=== PATIENT | female | born 1935 | race Caucasian/White ===

== ENCOUNTER 2017-11-15 07:32 | Inpatient (IN) | payer MEDICARE, OTHER ==
[~2017-11-15] VITALS: Ht 149.9 cm; Wt 49.8 kg
[2017-11-15] MEDS ORDERED: ATROPINE SYRINGE 0.1 MG/ML, 10ML ONE (07:36)
[2017-11-15 07:59] LABS: BASOPHILS # (AUTO) 0.02 x10^3/uL (0-0.1); BASOPHILS % (AUTO) 0 % (0-1); EOSINOPHILS # (AUTO) 0.17 x10^3/uL (0-0.4); EOSINOPHILS % (AUTO) 3 % (1-7); LYMPHOCYTES # (AUTO) 1.58 x10^3/uL (1-3.4); LYMPHOCYTES % (AUTO) 24 % (22-44); MD NO; MEAN CORPUSCULAR HEMOGLOBIN 33.3 pg (27.0-34.8); MEAN CORPUSCULAR VOLUME 98.1 fL (80-100); MEAN PLATELET VOLUME 8.9 fL (7.4-10.4); MONOCYTES # (AUTO) 0.37 x10^3/uL (0.2-0.8); MONOCYTES % (AUTO) 6 % (2-9); NEUTROPHILS % (AUTO) 68 % (42-75); PLATELET COUNT 279 x10^3/uL (130-400); RED BLOOD COUNT 3.62 x10^6/uL (3.82-5.3); RED CELL DISTRIBUTION WIDTH 12.4 % (9.6-15.2)
[2017-11-15] MEDS ORDERED: SODIUM CHLORIDE FLUSH 10ML SYR IVF ONE (08:00)
[2017-11-15] MEDS ORDERED: ATROPINE SYRINGE 0.1 MG/ML, 10ML IVPush ONE (08:00)
[2017-11-15] MEDS ORDERED: SODIUM CHLORIDE 0.9% 1,000ML IVBOLUS ONE (08:00)
[2017-11-15 08:08] LABS: INTERNATIONAL NORMALIZED RATIO 0.96 (0.93-1.1)
[2017-11-15 08:10] LABS: ALANINE AMINOTRANSFERASE 41 U/L (12-78); ALBUMIN 3.3 g/dL (3.4-5.0); ANION GAP 10 mmol/L (5-15); CALCIUM 7.7 mg/dL (8.5-10.1); CHLORIDE 103 mmol/L (98-107); CREATININE 0.83 mg/dL (0.55-1.02)
[2017-11-15 08:14] LABS: ALKALINE PHOSPHATASE 96 U/L (45-117); BILIRUBIN,TOTAL 0.4 mg/dL (0.2-1.0); TOTAL PROTEIN 6.4 g/dL (6.4-8.2); TROPONIN I < 0.015 ng/mL (0.000-0.045)
[2017-11-15] MEDS ORDERED: PLEASE ENTER ALLERGIES MC SCH (08:30)
[2017-11-15] MEDS: SODIUM CHLORIDE 0.9% 1,000 ML IV SCH ×3 (08:32→16:01)
[2017-11-15] MEDS ORDERED: CEFAZOLIN PMX 1GM/50ML 50 ML IVPB ONE (09:00)
[2017-11-15] MEDS ORDERED: LOSA100T7 PO (09:37)
[2017-11-15] MEDS ORDERED: METO25TA91 PO (09:37)
[2017-11-15] MEDS ORDERED: PRAV10TA2 PO (09:37)
[2017-11-15] MEDS ORDERED: PANT40TA5 PO (09:37)
[2017-11-15] MEDS ORDERED: DILT-8 PO (09:37)
[2017-11-15] MEDS ORDERED: ZOLP-413 PO (09:37)
[2017-11-15 12:52] VITALS: BP 128/71
[2017-11-15] MEDS ORDERED: LIDOCAINE-MPF 2%, 2ML ONE (14:00)
[2017-11-15] MEDS ORDERED: FENTANYL PF 100 MCG/2ML ONE (14:00)
[2017-11-15] MEDS ORDERED: CEFAZOLIN 1,000 MG ONE (14:00)
[2017-11-15] MEDS ORDERED: CEFAZOLIN PMX 1GM/50ML 50 ML ONE (14:00)
[2017-11-15] MEDS ORDERED: MIDAZOLAM 1 MG/ML, 2ML ONE (14:00)
[2017-11-15] MEDS ORDERED: ACETAMINOPHEN 325 MG TABLET PO PRN (14:00)
[2017-11-15] MEDS ORDERED: ONDANSETRON 2MG/ML, 2ML IVPush PRN (14:00)
[2017-11-15] MEDS ORDERED: LIDOCAINE 1%, 50ML ONE (14:09)
[2017-11-15] MEDS ORDERED: HOLD MEDICATION MC PRN (15:30)
[2017-11-15] MEDS: INSULIN LISPRO 100 UNITS/ML, PEN SQ-INSULIN SCH ×2 (16:00→21:12)
[2017-11-15 20:00] VITALS: BP 127/63
[2017-11-15 20:47] VITALS: BP 125/69
[2017-11-15] MEDS ORDERED: ZOLPIDEM 5MG TABLET PO SCH (21:00)
[2017-11-15] MEDS ORDERED: PRAVASTATIN 20 MG TABLET PO SCH (21:00)
[2017-11-15] MEDS ORDERED: SODIUM CHLORIDE FLUSH 10ML SYR IVF SCH (21:00)
[2017-11-15] MEDS: LOSARTAN 25MG TABLET PO SCH (21:12)
[2017-11-15] MEDS: CHOLECALCIFEROL 400 UNITS TABLET PO SCH (21:12)
[2017-11-15 22:37] LABS: TROPONIN I 0.114 ng/mL (0.000-0.045)
[2017-11-15] MEDS: CEFAZOLIN PMX 1GM/50ML 50 ML IVPB SCH (23:06)
[2017-11-16] MEDS: SODIUM CHLORIDE 0.9% 1,000 ML IV SCH ×3 (00:32→08:32)
[2017-11-16 02:00] VITALS: BP 151/71
[2017-11-16 04:15] LABS: BASOPHILS # (AUTO) 0.03 x10^3/uL (0-0.1); BASOPHILS % (AUTO) 0 % (0-1); EOSINOPHILS # (AUTO) 0.11 x10^3/uL (0-0.4); EOSINOPHILS % (AUTO) 1 % (1-7); LYMPHOCYTES # (AUTO) 1.02 x10^3/uL (1-3.4); LYMPHOCYTES % (AUTO) 13 % (22-44); MD NO; MEAN CORPUSCULAR HEMOGLOBIN 34.4 pg (27.0-34.8); MEAN CORPUSCULAR VOLUME 98.3 fL (80-100); MEAN PLATELET VOLUME 8.6 fL (7.4-10.4); MONOCYTES # (AUTO) 0.61 x10^3/uL (0.2-0.8); MONOCYTES % (AUTO) 8 % (2-9); NEUTROPHILS # (AUTO) 6.19 x10^3/uL (1.8-6.8); NEUTROPHILS % (AUTO) 78 % (42-75); PLATELET COUNT 260 x10^3/uL (130-400); RED BLOOD COUNT 3.31 x10^6/uL (3.82-5.3); RED CELL DISTRIBUTION WIDTH 12.5 % (9.6-15.2)
[2017-11-16 04:35] LABS: HEMOGLOBIN A1C 6.1 % (4.2-6.3)
[2017-11-16 05:17] LABS: ANION GAP 9 mmol/L (5-15); CALCIUM 7.2 mg/dL (8.5-10.1); CHLORIDE 109 mmol/L (98-107); CREATININE 0.63 mg/dL (0.55-1.02)
[2017-11-16 06:50] VITALS: BP 163/72
[2017-11-16] MEDS: INSULIN LISPRO 100 UNITS/ML, PEN SQ-INSULIN SCH (07:00)
[2017-11-16] MEDS ORDERED: PANTOPROZOLE 40MG TABLET PO SCH (07:30)
[2017-11-16] MEDS: CEFAZOLIN PMX 1GM/50ML 50 ML IVPB SCH (08:23)
[2017-11-16] MEDS: CHOLECALCIFEROL 400 UNITS TABLET PO SCH (08:23)
[2017-11-16] MEDS: LOSARTAN 25MG TABLET PO SCH (08:23)
[2017-11-16] MEDS ORDERED: CHOL400T2 PO (13:43)
== END 2017-11-16 15:40 | disposition home or self-care (01) | DRG 244 ==
LOC: ED 08:14 → EDIP 08:15 → ED 08:59 → 5SO 12:11
PROVIDERS: ADMIT Internal Medicine; ATTEND Internal Medicine
PROC: 02H63JZ Insertion of Pacemaker Lead into Right Atrium, Percutaneous Approach (ICD-10-PCS; principal; 2017-11-15)
PROC: 0JH606Z Insertion of Pacemaker, Dual Chamber into Chest Subcutaneous Tissue and Fascia, Open Approach (ICD-10-PCS; 2017-11-15)
PROC: 02HK3JZ Insertion of Pacemaker Lead into Right Ventricle, Percutaneous Approach (ICD-10-PCS; 2017-11-15)
PROC: 4B02XSZ Measurement of Cardiac Pacemaker, External Approach (ICD-10-PCS; 2017-11-16)
DX: I49.5 Sick sinus syndrome (principal); I44.1 Atrioventricular block, second degree; I44.7 Left bundle-branch block, unspecified; I10 Essential (primary) hypertension; E78.5 Hyperlipidemia, unspecified; E11.9 Type 2 diabetes mellitus without complications; K21.9 Gastro-esophageal reflux disease without esophagitis; F41.9 Anxiety disorder, unspecified; E86.0 Dehydration; M06.9 Rheumatoid arthritis, unspecified; Z85.828 Personal history of other malignant neoplasm of skin; Z88.6 Allergy status to analgesic agent; Z79.899 Other long term (current) drug therapy
CPT/HCPCS: 33208; 36415; 71045; 80048; 80053; 82962; 83036; 83735; 84443; 84484; 85025; 85610; 93005; 96374; 99156; 99291; C1779; C1785; C1892; G0378; J0461; J0690; J2250; J3010; J3490; J7030